=== PATIENT | female | born 1975 | race Caucasian/White ===

== ENCOUNTER → 2016-12-22 | Outpatient (CLI) | payer OTHER | END | disposition home or self-care (01) | LOC: LABWHC1 07:16 | PROVIDERS: ATTEND Obstetrics & Gynecology | DX: Z13.220 Encounter for screening for lipoid disorders (principal); Z13.1 Encounter for screening for diabetes mellitus | CPT/HCPCS: 36415; 80061; 82947; 84439; 84443 ==

== ENCOUNTER → 2017-01-04 | Outpatient (CLI) | payer OTHER ==
--- NOTE | 2017-01-06 08:39 | MM ---
Reason for exam: screening (asymptomatic). Last mammogram was performed 5 years and 1 month ago. History: Patient has history of endometrial cancer at age 22 and had first child at age 32. Physical Findings: A clinical breast exam by your physician is recommended on an annual basis and results should be correlated with mammographic findings. MG 3D Screening Mammo W/Cad Bilateral CC and MLO view(s) were taken. Prior study comparison: November 20, 2011, bilateral digital screening mammo w/CAD. The breast tissue is heterogeneously dense. This may lower the sensitivity of mammography. No significant changes when compared with prior studies. ASSESSMENT: Negative, BI-RAD 1 RECOMMENDATION: Routine screening mammogram of both breasts in 1 year.
== END | disposition home or self-care (01) ==
LOC: RADMAMWWP 07:22
PROVIDERS: ATTEND Obstetrics & Gynecology
DX: Z12.31 Encounter for screening mammogram for malignant neoplasm of breast (principal)
CPT/HCPCS: 77063; G0202

== ENCOUNTER → 2017-02-10 | Outpatient (CLI) | payer OTHER ==
--- NOTE | 2017-02-10 10:22 | MR ---
MR left foot HISTORY: Pain, limited movement, clicking Exam correlated to plain film from outside institution 10/27/2016 Postop changes are noted to be distal tibia and fibula, there is metallic susceptibility artifact pre sent which could limit the exam. There is a plantar calcaneal spur. Edema signal changes are present at the level of the origin of the plantar aponeurosis, there is some focal thickening present. Some i ncreased signal present within the plantar aponeurosis at its origin is also present. Some minimal fl uid signal present along the flexor tendons may be indicative of some T no synovitis, some fluid sign al also present along the peroneal longus and brevis tendons. The flexor and extensor tendons, perone al longus and brevis tendons are intact. Achilles tendon is intact. Bone marrow signal appears mainta ined. Some degenerative change present at the metatarsophalangeal joint of the first digit. IMPRESSION: There are some limitations to the exam. Findings compatible with plantar fasciitis, there may be partial tear of the plantar aponeurosis.
== END | disposition home or self-care (01) ==
LOC: RADMRIMAIN 07:54
PROVIDERS: ATTEND Orthopaedic Surgery
DX: M72.2 Plantar fascial fibromatosis (principal); M21.6X2 Other acquired deformities of left foot

== ENCOUNTER → 2017-12-24 | Outpatient (CLI) | payer OTHER ==
--- NOTE | 2017-12-24 15:10 | US ---
EXAMINATION TYPE: US pelvis complete transvag DATE OF EXAM: 12/24/2017 COMPARISON: NONE CLINICAL HISTORY: R10.2 PELVIC PAIN,N92.0 MENORRHAGIA. Clots during menses. Cramping past few menstr ual cycles. TECHNIQUE: Transvaginal (TV) and Transabdominal (TA) . Transabdominal sonographic images of the pel vis were acquired. Transvaginal sonographic images were medically necessary to better assess the fol lowing anatomy: Endometrium Date of LMP: 12/11/2017, EXAM MEASUREMENTS: Uterus: 8.0 x 4.9 x 4.4 cm Endometrial Stripe: 2.0 cm Right Ovary: 2.2 x 1.3 x 1.3 cm Left Ovary: 3.0 x 1.8 x 2.0 cm 1. Uterus: Anteverted Slightly heterogenous 2. Endometrium: Hypoechoic vascular solid lesion seen in fundal region - 1.7 x 1.6 x 1.5 cm 3. Right Ovary: follicles seen 4. Left Ovary: Dominant follicle = 1.8 x 1.8 x 1.5 cm 5. Bilateral Adnexa: wnl 6. Posterior cul-de-sac: no free fluid Cervix- wnl IMPRESSION: 1. Hypoechoic probable uterine leiomyoma within the uterine fundus impressing upon and possibly exten ding into the endometrium therefore this could be submucosal rather than intramural. 2. Dominant left ovarian follicle with physiologic follicular changes of both ovaries.
== END | disposition home or self-care (01) ==
LOC: RADUSWWP 14:04
PROVIDERS: ATTEND Obstetrics & Gynecology
DX: R10.2 Pelvic and perineal pain (principal)
CPT/HCPCS: 76830; 76856

== ENCOUNTER → 2018-02-11 | Outpatient (CLI) | payer OTHER ==
--- NOTE | 2018-02-15 10:38 | MM ---
Reason for exam: screening (asymptomatic). Last mammogram was performed 1 year and 1 month ago. History: Patient has history of endometrial cancer at age 22 and had first child at age 32. Physical Findings: A clinical breast exam by your physician is recommended on an annual basis and results should be correlated with mammographic findings. MG 3D Screening Mammo W/Cad Bilateral CC and MLO view(s) were taken. Prior study comparison: January 04, 2017, bilateral MG 3d screening mammo w/cad. November 20, 2011, bilateral digital screening mammo w/CAD. The breast tissue is heterogeneously dense. This may lower the sensitivity of mammography. There is no discrete abnormality. ASSESSMENT: Negative, BI-RAD 1 RECOMMENDATION: Routine screening mammogram of both breasts in 1 year.
== END ==
LOC: RADMAMWWP 16:29
PROVIDERS: ATTEND Obstetrics & Gynecology
DX: Z12.31 Encounter for screening mammogram for malignant neoplasm of breast (principal)
CPT/HCPCS: 77063; 77067

== ENCOUNTER → 2018-10-06 | Outpatient (CLI) | payer OTHER ==
[2018-10-06 20:38] LABS: Iron Saturation 61.92 (12.00-45.00)
== END | disposition home or self-care (01) ==
LOC: LABWHC1 12:17
PROVIDERS: ATTEND Family Medicine
DX: R79.0 Abnormal level of blood mineral (principal)
CPT/HCPCS: 36415; 82728; 83090; 83540; 83550; 84466

== ENCOUNTER → 2020-02-06 | Outpatient (CLI) | payer OTHER ==
[2020-02-06 12:33] LABS: Basophils % (A) 0 %; Eosinophils # (A) 0.2 k/uL (0-0.7); Eosinophils % (A) 3 %; HCT 43.3 % (34.0-46.0); HGB 13.8 gm/dL (11.4-16.0); Lymphocytes # (A) 2.2 k/uL (1.0-4.8); Lymphocytes % (A) 37 %; MCH 30.1 pg (25.0-35.0); MCHC 31.8 g/dL (31.0-37.0); MCV 94.5 fL (80.0-100.0); Monocytes # (A) 0.3 k/uL (0-1.0); Monocytes % (A) 5 %; Neutrophils # (A) 3.2 k/uL (1.3-7.7); Neutrophils % (A) 54 %; Platelet Count 290 k/uL (150-450); RBC 4.58 m/uL (3.80-5.40); RDW 12.8 % (11.5-15.5)
== END | disposition home or self-care (01) ==
LOC: LABPAT 10:11
PROVIDERS: ATTEND Obstetrics & Gynecology
DX: Z01.818 Encounter for other preprocedural examination (principal)
CPT/HCPCS: 36415; 85025

== ENCOUNTER 2020-02-16 06:09 | Day surgery (SDC) | payer OTHER ==
[2020-02-14 10:32] VITALS: BMI 29.0
--- NOTE | 2020-02-15 13:55 | P.HPOB ---
History of Present Illness H&P Date: 02/15/20 Chief Complaint: Menorrhagia with regular cycle This is a 44 y.o. female, 2, para 2, who presents for dilatation and curettage with hysteroscopy and Novasure endometrial ablation for menorrhagia with regular cycle. Her menses are occuring every 28 days and last 5 days, but are very heavy with lots of clotting. Has to change a pad and tampon and changes every 30-60 minutes for at least 2 days. She is also experiencing intermenstrual spotting and painful menses. Her has had a vasectomy. Her US showed uterus measuring 8 x 4.9 x 4.4 cm with a possible fibroid in fundal region measuring 1.7 cm. Ovaries appeared normal. At the time of her ultrasound, lining thickness was 2 cm. OB Hx: . History of 2 vaginal deliveries. [employer] Hx: No hx of STDs. Social Hx: . 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 Review of Systems Constitutional: Denies chills, Denies fever Eyes: denies blurred vision, denies pain Ears, nose, mouth and throat: Denies headache, Denies sore throat Cardiovascular: Denies chest pain, Denies shortness of breath Respiratory: Denies cough Gastrointestinal: Denies abdominal pain, Denies diarrhea, Denies nausea, Denies vomiting Genitourinary: Reports dysmenorrhea, Reports menorrhagia Menstruation: Reports period heavy, Reports period spotting Musculoskeletal: Reports myalgias Integumentary: Denies pruritus, Denies rash Neurological: Denies numbness, Denies weakness Endocrine: Reports fatigue Past Medical History Past Medical History: No Reported History History of Any Multi-Drug Resistant Organisms: None Reported Past Surgical History: Ear Surgery, Orthopedic Surgery Additional Past Surgical History / Comment(s): 3 ganglion cysts removed from bilateral wrists, 3 screws in left ankle, bilateral feet plantar facititis released, left leg tendon release. Past Anesthesia/Blood Transfusion Reactions: No Reported Reaction Past Psychological History: No Psychological Hx Reported Smoking Status: Former smoker Past Alcohol Use History: Occasional Additional Past Alcohol Use History / Comment(s): Smoked in college. Past Drug Use History: None Reported - Past Family History Mother Family Medical History: No Reported History Medications and Allergies Home Medications Medication Instructions Recorded Confirmed Type No Known Home Medications 02/14/20 02/16/20 History Allergies Allergy/AdvReac Type Severity Reaction Status Date / Time codeine Allergy Rash/Hives Verified 02/16/20 06:27 Sulfa (Sulfonamide Allergy Rash/Hives Verified 02/16/20 06:27 Antibiotics) Exam Osteopathic Statement: *. No significant issues noted on an osteopathic structural exam other than those noted in the History and Physical/Consult. HEENT: within normal limits Heart: regular rate and rhythm Lungs: clear to auscultation bilaterally Abdomen: soft, non-tender Pelvic: uterus anteverted, non-tender, no adnexal masses or tenderness Extremities: neg. Rhaat's Assessment and Plan (1) Menorrhagia with regular cycle Current Visit: No Status: Acute Code(s): N92.0 - EXCESSIVE AND FREQUENT MENSTRUATION WITH REGULAR CYCLE SNOMED Code(s): 232189583 Plan: Proceed with dilatation and curettage with hysteroscopy and Novasure endometrial ablation. I have discussed the risks, benefits, and alternative therapies for the above- mentioned procedure and for both sedation/anesthesia as well as necessary blood products administration, if indicated, as they pertain to this patient. The patient has indicated her understanding and acceptance of the risks and procedures discussed.
[~2020-02-16 06:09] MED LIST: HYDROmorphone 0.5 MG/0.5 ML SYRINGE IVP PRN; LACTATED RINGERS 1,000 ML IV SCH; LIDOCAINE 1% (10MG/ML) FOR IV START INTRADERMA PRN; ONDANSETRON 4 MG/2 ML VIAL IVP ONE; Pre Op ABX Message 1 EACH MISC MISCELLANE ONE
[2020-02-16] MEDS ORDERED: DEXAMETHASONE SOD PHOSPHATE 10 MG/ML 1 ML VIAL IV ONE (06:44)
[2020-02-16] MEDS ORDERED: LIDOCAINE 1% INJ 10MG/ML (20 ML MDV) ONE (07:25)
[2020-02-16] MEDS ORDERED: fentaNYL (PF) 50 MCG/ML 2 ML AMP ONE (07:25)
[2020-02-16] MEDS ORDERED: KETOROLAC 15 MG/ML 1 ML VIAL ONE (07:25)
[2020-02-16] MEDS ORDERED: MIDAZOLAM 2 MG/2 ML VIAL ONE (07:25)
[2020-02-16] MEDS ORDERED: PROPOFOL 10 MG/ML 20 ML VIAL IV ONE (07:25)
--- NOTE | 2020-02-16 08:07 | P.OP ---
Date of Procedure: 02/16/20 Preoperative Diagnosis: Menorrhagia with regular cycles Postoperative Diagnosis: Same Procedure(s) Performed: Dilation and curettage with hysteroscopy and NovaSure endometrial ablation Anesthesia: BOO Surgeon: Darlin Rodas Estimated Blood Loss (ml): 10 Pathology: other (Endometrial curettings) Condition: stable Disposition: same day Indications for Procedure: This is a 44 y.o. female, 2, para 2, who presents for dilatation and curettage with hysteroscopy and Novasure endometrial ablation for menorrhagia with regular cycle. Her menses are occuring every 28 days and last 5 days, but are very heavy with lots of clotting. Has to change a pad and tampon and changes every 30-60 minutes for at least 2 days. She is also experiencing intermenstrual spotting and painful menses. Her has had a vasectomy. Her US showed uterus measuring 8 x 4.9 x 4.4 cm with a possible fibroid in fundal region measuring 1.7 cm. Ovaries appeared normal. At the time of her ultrasound, lining thickness was 2 cm. Operative Findings: Uterus is retroverted, sounded to 9 cm. Cervix is sounded to 4 cm. Upon hysteroscopy, a dyssynchronous endometrial pattern is noted. There is noted to be a questionable polyp versus submucosal fibroid takes up a good majority of the endometrium. A moderate amount of material curettings are obtained. Description of Procedure: The patient is taken to the operating room. She is placed in the dorsal lithotomy position after general anesthesia was given. She is prepped and draped in the normal sterile fashion. Bladder is drained with a catheter and then removed. Pelvic exam is performed under anesthesia. Uterus is found to be retroverted with no adnexal masses. She is placed in slight Trendelenburg position. A right angle retractor is used to visualize the cervix. The ant erior lip of the cervix is grasped with a single-tooth tenaculum. Cervix is sounded to 4 cm. Uterus is sounded to 9 cm. Cervix is gently dilated with Carrillo dilators until a hysteroscope could be passed. Hysteroscopy is performed using normal saline. The above noted findings are noted. Next a polyp forceps is introduced. A moderate amount of tissue was obtained. Next medium-sized size sharp curette was placed. A moderate to large amount of endometrial curettings were obtained. Next NovaSure array was inserted into the endometrial cavity. Length was set at 5 cm and width was determined to be 4.6 cm. Next cavity assessment was completed and passed on the first try. Next NovaSure array was fired at 127 W for 32 seconds. Next the array was removed, inspected and then discarded. Next the hysteroscope was reinserted. Charring was noted, but it is uncertain if the entire endometrium was completely ablated due to question no submucosal fibroid. Pictures were taken. Hysteroscope was removed. Single-tooth tenaculum was removed from the anterior lip of the cervix. Minimal bleeding was noted. All other instruments removed from the vagina. Sponge counts were correct. Patient is taken to recovery room in stable condition.
[2020-02-16 08:15] VITALS: TEMP 98.1
[2020-02-16 08:43] VITALS: RESP 18
[2020-02-16 09:01] VITALS: BP 100/64; PULSE 80
== END 2020-02-16 09:37 | disposition home or self-care (01) ==
LOC: OR 06:09
PROVIDERS: ATTEND Obstetrics & Gynecology
DX: N92.0 Excessive and frequent menstruation with regular cycle (principal); N85.9 Noninflammatory disorder of uterus, unspecified; Z88.2 Allergy status to sulfonamides; Z88.5 Allergy status to narcotic agent; Z98.890 Other specified postprocedural states; Z87.39 Personal history of other diseases of the musculoskeletal system and connective tissue; Z87.891 Personal history of nicotine dependence
CPT/HCPCS: 81025; 88305; 58563; J2250; J1100; J2405; J2001; J3010; J1885; J2704

== ENCOUNTER → 2020-04-24 | Outpatient (CLI) | payer OTHER ==
--- NOTE | 2020-04-24 13:39 | MM ---
Reason for exam: screening (asymptomatic). Last mammogram was performed 2 years and 2 months ago. History: Patient has history of endometrial cancer at age 22 and had first child at age 32. Physical Findings: A clinical breast exam by your physician is recommended on an annual basis and results should be correlated with mammographic findings. MG 3D Screening Mammo W/Cad Bilateral CC and MLO view(s) were taken. Prior study comparison: February 11, 2018, bilateral MG 3d screening mammo w/cad. January 04, 2017, bilateral MG 3d screening mammo w/cad. The breast tissue is heterogeneously dense. This may lower the sensitivity of mammography. Asymmetric breast tissue left breast, stable. There is no discrete abnormality. ASSESSMENT: Negative, BI-RAD 1 RECOMMENDATION: Routine screening mammogram of both breasts in 1 year.
== END | disposition home or self-care (01) ==
LOC: RADMAMWWP 09:39
PROVIDERS: ATTEND Obstetrics & Gynecology
DX: Z12.31 Encounter for screening mammogram for malignant neoplasm of breast (principal)
CPT/HCPCS: 77063; 77067

== ENCOUNTER → 2022-05-13 | Outpatient (CLI) | payer OTHER ==
--- NOTE | 2022-05-14 08:48 | MM ---
Reason for Exam: Screening (asymptomatic). Last screening mammogram was performed 12 month(s) ago. Patient History: Menarche at age 13. First Full-Term at age 32. Late child-bearing (after 30). Premenopausal. Endometrial cancer, age 22. Last menstrual period: 05/03/2022 Risk Values: Cherelle 5 year model risk: 1.1%. NCI Lifetime model risk: 13.0%. Prior Study Comparison: 02/11/2018 Bilateral Screening Mammogram, [facility]. 04/24/2020 Bilateral Screening Mammogram, [facility]. 05/12/2021 Bilateral Screening Mammogram, [facility]. Tissue Density: The breast tissue is heterogeneously dense. This may lower the sensitivity of mammography. Findings: Analyzed By CAD. There is no suspicious group of microcalcifications or new suspicious mass in either breast. No significant change from prior exams. Overall Assessment: Negative, BI-RAD 1 Management: Screening Mammogram of both breasts in 1 year. A clinical breast exam by your physician is recommended on an annual basis and results should be correlated with mammographic findings. Electronically signed and approved by: Eber Azul D.O.
== END | disposition home or self-care (01) ==
LOC: RADMAMWWP 08:07
PROVIDERS: ATTEND Obstetrics & Gynecology
DX: Z12.31 Encounter for screening mammogram for malignant neoplasm of breast (principal)
CPT/HCPCS: 77063; 77067

== ENCOUNTER → 2023-05-26 | Outpatient (CLI) | payer OTHER ==
--- NOTE | 2023-05-27 20:10 | MM ---
Reason for Exam: Screening (asymptomatic). Last screening mammogram was performed 12 month(s) ago. Patient History: Menarche at age 13. First Full-Term at age 32. Late child-bearing (after 30). Premenopausal. Endometrial cancer, age 22. Risk Values: Cherelle 5 year model risk: 1.2%. NCI Lifetime model risk: 12.8%. Prior Study Comparison: 04/24/2020 Bilateral Screening Mammogram, [facility]. 05/12/2021 Bilateral Screening Mammogram, [facility]. 05/13/2022 Bilateral MG 3D screening mammo w/cad, [facility]. Tissue Density: The breast tissue is heterogeneously dense. This may lower the sensitivity of mammography. Findings: Analyzed By CAD. There is no suspicious group of microcalcifications or new suspicious mass in either breast. Overall Assessment: Negative, BI-RAD 1 Management: Screening Mammogram of both breasts in 1 year. . Patient should continue monthly self-breast exams. A clinical breast exam by your physician is recommended on an annual basis. This exam should not preclude additional follow-up of suspicious palpable abnormalities. Note on Cherelle scores and lifetime risk: 1. A Cherelle score greater than 3% is considered moderate risk. If this is the case, consider specialist referral to assess eligibility for a risk reducing agent. 2. If overall lifetime risk for the development of breast cancer is 20% or higher, the patient may qualify for future screening with alternating mammogram and breast MRI. Electronically signed and approved by: Pita Lezama M.D. Radiologist
== END | disposition home or self-care (01) ==
LOC: RADMAMWWP 08:22
PROVIDERS: ATTEND Obstetrics & Gynecology
DX: Z12.31 Encounter for screening mammogram for malignant neoplasm of breast (principal)
CPT/HCPCS: 77063; 77067

== ENCOUNTER → 2023-07-20 | Outpatient (CLI) | payer OTHER ==
--- NOTE | 2023-07-21 17:32 | US ---
EXAMINATION TYPE: US thyroid st tissue head/neck DATE OF EXAM: 07/20/2023 COMPARISON: NONE CLINICAL INDICATION: Female, 47 years old with history of R89.1 ABNORMAL LEVEL OF HORMONES; GLAND SIZE: Right Lobe: 4.6 x 1.8 x 1.4 cm Overall Parenchyma: homogeneous Left Lobe: 4.5 x 1.5 x 1.3 cm Overall Parenchyma: homogeneous Isthmus Thickness: 0.3 cm NODULES RIGHT: # of nodules measured on right: 0 LEFT: # of nodules measured on left: 0 ISTHMUS: # of nodules measured in the isthmus: 0 Bilateral neck scanned, no evidence of lymphadenopathy. IMPRESSION: Normal homogeneous appearance to the thyroid gland. No discrete nodules.
== END | disposition home or self-care (01) ==
LOC: RADUSWWP 16:20
PROVIDERS: ATTEND Family Medicine
DX: R89.1 Abnormal level of hormones in specimens from other organs, systems and tissues (principal)
CPT/HCPCS: 76536

== ENCOUNTER → 2023-09-15 | Outpatient (CLI) | payer OTHER ==
[2023-09-15 15:32] LABS: T4, Free (Free Thyroxine) 1.04 ng/dL (0.80-1.80)
== END | disposition home or self-care (01) ==
LOC: LABWHC1 07:48
PROVIDERS: ATTEND Internal Medicine Endocrinology, Diabetes & Metabolism
DX: E05.00 Thyrotoxicosis with diffuse goiter without thyrotoxic crisis or storm (principal)
CPT/HCPCS: 36415; 84439; 84443; 84445; 84480